=== PATIENT | female | born 1960 | race Caucasian/White ===

== ENCOUNTER → 2023-06-20 14:44 | Outpatient (REF) | payer OTHER, SELFPAY | LOC: DHCBC HW 14:44 | PROVIDERS: ATTENDING PHYSICIAN Internal Medicine Cardiovascular Disease; FAMILY PHYSICIAN Family Medicine | DX: I25.10 Atherosclerotic heart disease of native coronary artery without angina pectoris (principal) | CPT/HCPCS: 93306 ==

== ENCOUNTER → 2023-06-21 07:04 | Outpatient (REF) | payer OTHER, SELFPAY | LOC: DHCBC/DCA 07:04 | PROVIDERS: ATTENDING PHYSICIAN Internal Medicine Cardiovascular Disease; FAMILY PHYSICIAN Family Medicine | DX: I25.10 Atherosclerotic heart disease of native coronary artery without angina pectoris (principal) | CPT/HCPCS: 78452; 93017; A9500; J2785 ==

== ENCOUNTER 2023-12-16 09:55 | Day surgery (SDC) | payer OTHER, SELFPAY ==
[2023-12-16] VITALS (16 sets, daily range): BP systolic 99–175; BP diastolic 57–130; BMI 34.2
[2023-12-16 10:53] LABS: Glucose - Point of Care 227 mg/dl (70-99)
[2023-12-16] MEDS: NSS 271 ML IV (11:07)
[2023-12-16] MEDS: LOW STRENGTH ASPIRIN 81 MG PO ×2 (11:09→11:15)
[2023-12-16] MEDS: NSS 1000 IV (13:15)
[2023-12-16] MEDS: IMDUR (EXTENDED RELEASE) 240 MG PO (13:46)
[2023-12-16] MEDS: TOPROL XL 100 MG PO (13:47)
[2023-12-16] MEDS: VASOTEC 10 MG PO (13:47)
== END 2023-12-16 15:21 | disposition home or self-care (01) ==
LOC: CATH 09:55
PROVIDERS: ATTENDING PHYSICIAN Student in an Organized Health Care Education/Training Program; FAMILY PHYSICIAN Family Medicine; OTHER PHYSICIAN Internal Medicine
DX: I25.10 Atherosclerotic heart disease of native coronary artery without angina pectoris (principal); I10 Essential (primary) hypertension; E78.5 Hyperlipidemia, unspecified; E11.9 Type 2 diabetes mellitus without complications; F17.210 Nicotine dependence, cigarettes, uncomplicated; Z79.82 Long term (current) use of aspirin; Z79.84 Long term (current) use of oral hypoglycemic drugs
CPT/HCPCS: 82962; 93458; C1894; Q9967

== ENCOUNTER → 2024-01-12 12:39 | Outpatient (REF) | payer OTHER, SELFPAY | LOC: HWRAD 12:39 | PROVIDERS: ATTENDING PHYSICIAN Surgery Vascular Surgery; FAMILY PHYSICIAN Family Medicine; REFERRING PHYSICIAN Internal Medicine | DX: I73.9 Peripheral vascular disease, unspecified (principal) | CPT/HCPCS: 75635; Q9967 ==

== ENCOUNTER → 2024-01-16 11:57 | Outpatient (REF) | payer OTHER, SELFPAY | LOC: RAD 11:57 | PROVIDERS: ATTENDING PHYSICIAN Surgery Vascular Surgery; FAMILY PHYSICIAN Internal Medicine | DX: I73.9 Peripheral vascular disease, unspecified (principal) | CPT/HCPCS: 93922 ==

== ENCOUNTER 2024-01-31 09:09 | Day surgery (SDC) | payer OTHER, SELFPAY ==
--- NOTE | 2024-01-27 14:07 | PTCARENOTE ---
Patients 12/07 ECG abnormal, reviewed by Dr. Lorenz- no interventions required
[2024-01-31] VITALS (22 sets, daily range): BP systolic 109–214; BP diastolic 45–121; BMI 35.5
[2024-01-31 10:31] LABS: Hematocrit 41.3 % (37.0-47.0); Hemoglobin 15.2 g/dL (12.0-16.0); Mean Corp Hgb Conc. 36.8 g/dL (33.0-37.0); Mean Corpuscular Hgb 35.4 pg (27.0-31.0); Mean Corpuscular Volume 96.3 fL (81.0-99.0); Mean Platelet Volume 9.6 fL (7.4-10.4); Platelet Count 170 10^3/uL (130-400); Red Blood Cell Count 4.29 10^6/uL (4.20-5.40); White Blood Cell Count 7.1 10^3/uL (4.8-10.8)
[2024-01-31 10:41] LABS: APTT 32.4 Sec (23.4-35.0); INR 1.26; PT 15.6 Sec (11.4-14.6)
[2024-01-31 10:52] LABS: Blood Urea Nitrogen 8 mg/dl (7-17); Calcium 9.3 mg/dl (8.4-10.2); Carbon Dioxide 24 mmol/L (22-30); Chloride 98 mmol/L (98-107); Estimated Creatinine Clearance 101 ml/min; Glucose 197 mg/dl (70-99); Potassium 4.4 mmol/L (3.5-5.1); Sodium 135 mmol/L (135-145); eGFR > 60.00
--- NOTE | 2024-01-31 12:00 | W.SUR.PREOP ---
Pre-Operative Surgical Note
-
I have examined this patient prior to the performance of the scheduled procedure.
The patient's condition is unchanged from the time of the current History and
Physical and the patient is able to undergo the scheduled procedure.
[2024-01-31 14:34] LABS: Glucose - Point of Care 204 mg/dl (70-99)
[2024-01-31] MEDS: PLAVIX 300 MG PO (14:55)
[2024-01-31] MEDS: SUBLIMAZE 50 MCG IV (15:04)
--- NOTE | 2024-01-31 15:49 | OR.RPT ---
Operative Report
Operative Report
Date of Operation: 01/31/2024
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
Procedure:
1.) Intravascular lithotripsy to left external iliac artery stenosis (7 mm x 60 mm M 5+ shockwave balloon)
2.) Balloon angioplasty and stenting of proximal left external iliac artery stenosis (7 mm x 39 mm Denbo VBX stent)
3.) Balloon angioplasty and stenting of distal left external iliac artery stenosis (7 mm x 37 mm express LD stent)
4.) Intravascular lithotripsy to right common iliac artery stenosis (9 mm x 30 mm L6 shockwave balloon)
5.) Balloon angioplasty and stenting of right common iliac artery stenosis (8 mm x 59 mm Denbo VBX stent)
6.) Diagnostic aortobiiliac arteriogram
7.) Limited diagnostic bilateral lower extremity arteriograms
8.) Ultrasound-guided percutaneous access to the BILATERAL common femoral arteries
Surgeon: Ramiro Morelos III, MD
Air Moving Technician: Delia Richard MD PGY-8
Anesthesia: Sedation with local
Fluoroscopy:
22.6 min
1917 mGy
633.4 Gy.cm2
Complications: None
Estimated Blood Loss: 20 cc
History and Indications for Procedure: 63-year-old female with calcified high-grade bilateral iliac artery stenoses and debilitating lower extremity claudication.
Procedure in Detail: Carol Ann Aguirre was correctly identified and placed supine on the operating table. After adequate induction of anesthesia the bilateral groins were prepped and draped in the usual sterile fashion. A timeout was performed with the
nursing and anesthesia staff confirming the patient's identity as well as the nature and laterality of the procedure.
The bilateral common femoral arteries was identified under ultrasound guidance. The arteries were patent bilaterally. The superior and inferior aspects of the femoral head were identified with radiographic guidance and marked at the skin level. The
proposed puncture site was infiltrated with local anesthesia. We saved a copy of the ultrasound image to the medical record. Under ultrasound guidance we accessed bilateral common femoral arteries with a micropuncture needle and upsized to a 5 Fr
sheath over a Bentson wire. An aorto by iliac arteriogram was performed via bilateral retrograde sheath injection:
AORTO-ILIAC ARTERIOGRAM: Heavily calcified high-grade stenosis involving the right common iliac artery. Peripherally calcified but patent left common iliac artery with no significant stenosis identified. Patent right external iliac artery with no
significant stenosis identified. High-grade calcified stenosis involving the proximal left external iliac artery. Focal stenosis in the distal left external iliac artery. Iliac bifurcations patent bilaterally.
ENDOVASCULAR INTERVENTION:
Systemic heparin was administered.
LEFT: Under roadmap guidance using a Quickcross catheter and Glidewire we navigated retrograde through the calcified proximal left external iliac artery stenosis. The wire and Quickcross catheter were navigated into the distal abdominal aorta.
Exchanged out for a Storq wire. A 7 Portuguese sheath was placed. I then exchanged back out for a 0.014 wire which was positioned in the distal abdominal aorta. Due to the heavily calcified nature of the arterial disease and in an effort to modify
the calcium to achieve maximum luminal gain with endovascular intervention I elected to proceed with intravascular lithotripsy. A 7 mm x 60 mm M5+ Shockwave balloon was placed across the external iliac artery stenosis under roadmap guidance.
Alternating rounds of lithotripsy pulse delivery at sub-nominal pressure and angioplasty at nominal pressure was performed across the external iliac artery stenosis. In between rounds of pulse delivery and angioplasty the balloon was deflated and
repositioned under roadmap guidance. All 300 pulses were delivered. Following this I brought into position a 7 mm x 39 mm Denbo VBX stent. This was placed in the desired location and deployed. Subsequent arteriogram demonstrated an excellent
technical result. Under roadmap guidance I then brought into position a 7 mm x 37 mm express LD stent. This was used to treat the distal external iliac artery stenosis. The stent was deployed in the desired location. Subsequent arteriogram
demonstrated an excellent technical result.
RIGHT: Under roadmap guidance using a Quickcross catheter and Glidewire we navigated retrograde through the calcified right common iliac artery stenosis. The wire and Quickcross catheter were advanced into the distal abdominal aorta. I exchanged
out for a Storq wire. A 7 Portuguese sheath was placed. I then exchanged out for a 0.018 wire which was positioned in the distal abdominal aorta. Due to the heavily calcified nature of the arterial disease and in an effort to modify the calcium to
achieve maximum luminal gain with endovascular intervention I elected to proceed with intravascular lithotripsy. A 9 mm x 30 mm L6 shockwave balloon was placed across the common iliac artery stenosis under roadmap guidance. Alternating rounds of
lithotripsy pulse delivery at sub-nominal pressure and angioplasty at nominal pressure was performed across the stenosis. In between rounds of pulse delivery and angioplasty the balloon was deflated and repositioned under roadmap guidance. All 300
pulses were delivered. Subsequent arteriogram demonstrated an improved result. Under roadmap guidance I then brought into position a 8 mm x 59 mm Denbo VBX stent. This was positioned in the desired location and deployed. Subsequent arteriogram
demonstrated an excellent technical result.
COMPLETION ARTERIOGRAM: Excellent technical result. Widely patent iliac arteries bilaterally. Patent iliac stents bilaterally. Preserved iliac bifurcations bilaterally. Brisk flow through the iliac system bilaterally. No significant residual
stenosis identified. A limited arteriogram of the bilateral lower extremities was also performed through the proximal thighs demonstrating patent common femoral arteries, proximal superficial femoral arteries and profunda femoral arteries.
Satisfied with this result we concluded the procedure. Protamine was administered. The sheaths were pulled bilaterally. Direct manual pressure was held over the puncture sites. Hemostasis was achieved. Sterile dressings were applied.
The patient tolerated the procedure well and was taken to the recovery area in stable condition.
Attestation: I was present and responsible for the entire procedure.
Signed:
Ramiro Morelos III, MD
[facility]
[phone] (aprs)
[2024-01-31] MEDS: ROXICODONE 5 MG PO (15:50)
[2024-01-31] MEDS: IMDUR (EXTENDED RELEASE) 240 MG PO (16:20)
[2024-01-31] MEDS: VASOTEC 10 MG PO ×2 (16:21)
== END 2024-01-31 20:00 | disposition home or self-care (01) ==
LOC: CATH 09:09
PROVIDERS: ATTENDING PHYSICIAN Surgery Vascular Surgery; FAMILY PHYSICIAN Family Medicine; OTHER PHYSICIAN Internal Medicine
DX: I70.223 Atherosclerosis of native arteries of extremities with rest pain, bilateral legs (principal); E11.51 Type 2 diabetes mellitus with diabetic peripheral angiopathy without gangrene; Z79.84 Long term (current) use of oral hypoglycemic drugs; I25.10 Atherosclerotic heart disease of native coronary artery without angina pectoris; F17.210 Nicotine dependence, cigarettes, uncomplicated; E78.2 Mixed hyperlipidemia; I10 Essential (primary) hypertension
CPT/HCPCS: C9765 ×2; 75630; 80048; 82962; 85027; 85610; 85730; C1769; C1874; C1876; C1894

== ENCOUNTER → 2024-05-03 09:45 | Outpatient (REF) | payer OTHER, SELFPAY | LOC: RAD 09:45 | PROVIDERS: ATTENDING PHYSICIAN Surgery Vascular Surgery; FAMILY PHYSICIAN Family Medicine | DX: I73.9 Peripheral vascular disease, unspecified (principal) | CPT/HCPCS: 93922; 93925; 93978 ==

== ENCOUNTER → 2024-12-05 13:44 | Outpatient (REF) | payer OTHER, SELFPAY | LOC: RAD 13:44 | PROVIDERS: ATTENDING PHYSICIAN Physician Assistant; FAMILY PHYSICIAN Family Medicine | DX: I73.9 Peripheral vascular disease, unspecified (principal) | CPT/HCPCS: 93922; 93925; 93978 ==